=== PATIENT | female | born 1985 | race African-American/Black ===

== ENCOUNTER 2019-10-04 03:36 | Emergency (ER) | payer OTHER ==
[~2019-10-04] VITALS: Ht 154.9 cm; Wt 72.6 kg
--- NOTE | 2019-10-04 04:00 | NUR ---
ED Nurse Note: Pt walked into ED from home for c/o vaginal bleeding onset 1 month ago. Pt states she was seen at [facility] on 09/28 for same complaint and had US/blood work completed. Pt was instructed to return for follow up labs to see trend in lab work. Pt states vaginal bleeding has been worse the past couple of days. Pt denies abdominal pain. No N/V, cough, SOB or fever noted. Pt is approx 6 weeks per US completed on 09/28. Pt is aaox4, breathing is normal and unlabored. NAD.
[2019-10-04 04:20] LABS: BILIRUBIN, URINE NEGATIVE (NEGATIVE); GLUCOSE, URINE (UA) NEGATIVE (NEGATIVE); KETONES,URINE NEGATIVE (NEGATIVE); LEUKOCYTE ESTERASE ,URINE 1+ (NEGATIVE); NITRITE,URINE NEGATIVE (NEGATIVE); PH,URINE 6 (4.5-8.0); PROTEIN,URINE 1+ (NEGATIVE); UROBILINOGEN,URINE 1 MG/DL (0.0-1.0)
[2019-10-04 04:29] LABS: ANION GAP 8 mmol/L (5-15); BLOOD UREA NITROGEN 6 mg/dL (7-18); CALCIUM 9.1 MG/DL (8.5-10.1); CARBON DIOXIDE 23 MMOL/L (21-32); CHLORIDE 105 MMOL/L (98-107); CREATININE 0.8 MG/DL (0.55-1.30); POTASSIUM 4.3 MMOL/L (3.5-5.1); SODIUM 136 MMOL/L (136-145)
[2019-10-04 04:31] LABS: BASOPHILS % (AUTO) 1.1 % (0.0-2.0); EOSINOPHILS % (AUTO) 0.8 % (0.0-3.0); HEMATOCRIT 36.2 % (37.0-47.0); HEMOGLOBIN 11.6 G/DL (12.0-16.0); LYMPHOCYTES % (AUTO) 16.3 % (20.0-45.0); MEAN CORPUSCULAR VOLUME 74 FL (80-99); MONOCYTES % (AUTO) 7.1 % (1.0-10.0); NEUTROPHILS % (AUTO) 74.6 % (45.0-75.0); PLATELET COUNT 330 K/UL (150-450); RED BLOOD COUNT 4.86 M/UL (4.20-5.40); RED CELL DISTRIBUTION WIDTH 13.1 % (11.6-14.8); WHITE BLOOD COUNT 10.4 K/UL (4.8-10.8)
[2019-10-04 04:33] LABS: ALANINE AMINOTRANSFERASE 33 U/L (12-78); ALBUMIN 3.7 G/DL (3.4-5.0); ALBUMIN/GLOBULIN RATIO 0.9 (1.0-2.7); ALKALINE PHOSPHATASE 50 U/L (46-116); ASPARTATE AMINO TRANSFERASE 37 U/L (15-37); BILIRUBIN,TOTAL 0.5 MG/DL (0.2-1.0)
[2019-10-04 04:40] LABS: APPEARANCE,URINE SLIGHTLY CLOUDY; COLOR,URINE YELLOW
--- NOTE | 2019-10-04 06:00 | NUR ---
ED Nurse Note: Pt is resting in bed, NAD. Awaiting on US at this time. Will cont. to monitor.
--- NOTE | 2019-10-04 06:04 | Emergency Room Report ---
History of Present Illness General Chief Complaint: Complications Source: Patient (Ronak Harris MD) Present Illness HPI 34-year-old female presents the ED for vaginal bleeding. States she was seen at [facility] a few days ago for also bleeding. Is . Was told she is about 6 weeks . Was told to come back to the ED if her bleeding continued. Denies pain. Denies any nausea or vomiting. No other aggravating relieving factors. Denies any other associated symptoms. (Ronak Harris MD) Allergies: Coded Allergies: No Known Allergies (Unverified , 10/04/19) COVID-19 Screening Contact w/high risk pt: No Experienced COVID-19 symptoms?: No COVID-19 Testing performed CENTRAL OFFICE REPAIRER: No (Ronak Harris MD) Patient History Past Medical History: none Past Surgical History: none Pertinent Family History: none Social History: Denies: smoking, alcohol use, drug use Last Menstrual Period: one month ago - 08/2019 Now: Yes Immunizations: UTD Reviewed Nursing Documentation: PMH: Agreed; PSxH: Agreed (Ronak Harris MD) Review of Systems All Other Systems: negative except mentioned in HPI (Ronak Harris MD) Physical Exam Vital Signs Date Time Temp Pulse Resp B/P (MAP) Pulse Ox O2 Delivery O2 Flow Rate FiO2 10/04/19 03:42 98.8 97 16 103/68 (80) 98 Room Air Sp02 EP Interpretation: reviewed, normal General Appearance: no apparent distress, alert, GCS 15, non-toxic Head: normocephalic, atraumatic Eyes: bilateral eye normal inspection, bilateral eye PERRL ENT: hearing grossly normal, normal pharynx, no angioedema, normal voice Neck: full range of motion, supple/symm/no masses Respiratory: chest non-tender, lungs clear, normal breath sounds, speaking full sentences Cardiovascular #1: regular rate, rhythm, no edema Cardiovascular #2: 2+ carotid (R), 2+ carotid (L), 2+ radial (R), 2+ radial (L) , 2+ dorsalis pedis (R), 2+ dorsalis pedis (L) Gastrointestinal: normal bowel sounds, non tender, soft, non-distended, no guarding, no rebound Rectal: deferred Genitourinary: normal inspection, no CVA tenderness Musculoskeletal: back normal, normal range of motion, gait/station normal, non- tender Neurologic: alert, motor strength/tone normal, oriented x3, sensory intact, responsive, speech normal Psychiatric: judgement/insight normal, memory normal, mood/affect normal, no suicidal/homicidal ideation Reflexes: 3+ bicep (R), 3+ bicep (L), 3+ tricep (R), 3+ tricep (L), 3+ knee (R) , 3+ knee (L) Lymphatic: no adenopathy (Ronak Harris MD) Medical Decision Making Diagnostic Impression: Primary Impression: Threatened miscarriage Additional Impressions: Subchorionic hematoma in first trimester UTI in Laboratory Tests Test 10/04/19 04:07 White Blood Count 10.4 K/UL (4.8-10.8) Red Blood Count 4.86 M/UL (4.20-5.40) Hemoglobin 11.6 G/DL (12.0-16.0) L Hematocrit 36.2 % (37.0-47.0) L Mean Corpuscular Volume 74 FL (80-99) L Mean Corpuscular Hemoglobin 23.9 PG (27.0-31.0) L Mean Corpuscular Hemoglobin Concent 32.1 G/DL (32.0-36.0) Red Cell Distribution Width 13.1 % (11.6-14.8) Platelet Count 330 K/UL (150-450) Mean Platelet Volume 6.7 FL (6.5-10.1) Neutrophils (%) (Auto) 74.6 % (45.0-75.0) Lymphocytes (%) (Auto) 16.3 % (20.0-45.0) L Monocytes (%) (Auto) 7.1 % (1.0-10.0) Eosinophils (%) (Auto) 0.8 % (0.0-3.0) Basophils (%) (Auto) 1.1 % (0.0-2.0) Urine Color Yellow Urine Appearance Slightly cloudy Urine pH 6 (4.5-8.0) Urine Specific Hazen 1.020 (1.005-1.035) Urine Protein 1+ (NEGATIVE) H Urine Glucose (UA) Negative (NEGATIVE) Urine Ketones Negative (NEGATIVE) Urine Blood 4+ (NEGATIVE) H Urine Nitrite Negative (NEGATIVE) Urine Bilirubin Negative (NEGATIVE) Urine Urobilinogen 1 MG/DL (0.0-1.0) H Urine Leukocyte Esterase 1+ (NEGATIVE) H Urine RBC 5-10 /HPF (0 - 2) H Urine WBC 2-4 /HPF (0 - 2) Urine Squamous Epithelial Cells Many /LPF (NONE/OCC) H Urine Bacteria Many /HPF (NONE) H Urine HCG, Qualitative Positive (NEGATIVE) Sodium Level 136 MMOL/L (136-145) Potassium Level 4.3 MMOL/L (3.5-5.1) Chloride Level 105 MMOL/L (98-107) Carbon Dioxide Level 23 MMOL/L (21-32) Anion Gap 8 mmol/L (5-15) Blood Urea Nitrogen 6 mg/dL (7-18) L Creatinine 0.8 MG/DL (0.55-1.30) Estimat Glomerular Filtration Rate > 60 mL/min (>60) Glucose Level 128 MG/DL (74-106) H Calcium Level 9.1 MG/DL (8.5-10.1) Total Bilirubin 0.5 MG/DL (0.2-1.0) Aspartate Amino Transf (AST/SGOT) 37 U/L (15-37) Alanine Aminotransferase (ALT/SGPT) 33 U/L (12-78) Alkaline Phosphatase 50 U/L (46-116) Total Protein 7.9 G/DL (6.4-8.2) Albumin 3.7 G/DL (3.4-5.0) Globulin 4.2 g/dL Albumin/Globulin Ratio 0.9 (1.0-2.7) L Lipase 130 U/L (73-393) Human Chorionic Gonadotropin, Quant [id number] mIU/mL (1-6) H (Ronak Harris MD) ER Course Assumed care of the patient from previous provider approximately 6:30 AM pending ultrasound Briefly this is a 34-year-old female 6 weeks gestation by LMP presenting with vaginal bleeding. Bleeding is now resolved and she is not experiencing any cramping or abdominal pain. Labs have returned within normal limits with an adequate hCG level. Ultrasound is now been performed showing a single intrauterine with adequate heart rate no evidence of distress however there is a small subchorionic hematoma noted as well. Blood type is O+ she does not require RhoGam. 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 . Urinalysis also concerning for UTI. She was treated with Rocephin in the ED and will be discharged on Keflex. She is instructed to follow-up with them immediately to discuss today's findings. She understands and agrees with this treatment plan. Laboratory Tests Test 10/04/19 04:07 10/04/19 08:37 White Blood Count 10.4 K/UL (4.8-10.8) Red Blood Count 4.86 M/UL (4.20-5.40) Hemoglobin 11.6 G/DL (12.0-16.0) L Hematocrit 36.2 % (37.0-47.0) L Mean Corpuscular Volume 74 FL (80-99) L Mean Corpuscular Hemoglobin 23.9 PG (27.0-31.0) L Mean Corpuscular Hemoglobin Concent 32.1 G/DL (32.0-36.0) Red Cell Distribution Width 13.1 % (11.6-14.8) Platelet Count 330 K/UL (150-450) Mean Platelet Volume 6.7 FL (6.5-10.1) Neutrophils (%) (Auto) 74.6 % (45.0-75.0) Lymphocytes (%) (Auto) 16.3 % (20.0-45.0) L Monocytes (%) (Auto) 7.1 % (1.0-10.0) Eosinophils (%) (Auto) 0.8 % (0.0-3.0) Basophils (%) (Auto) 1.1 % (0.0-2.0) Urine Color Yellow Urine Appearance Slightly cloudy Urine pH 6 (4.5-8.0) Urine Specific Hazen 1.020 (1.005-1.035) Urine Protein 1+ (NEGATIVE) H Urine Glucose (UA) Negative (NEGATIVE) Urine Ketones Negative (NEGATIVE) Urine Blood 4+ (NEGATIVE) H Urine Nitrite Negative (NEGATIVE) Urine Bilirubin Negative (NEGATIVE) Urine Urobilinogen 1 MG/DL (0.0-1.0) H Urine Leukocyte Esterase 1+ (NEGATIVE) H Urine RBC 5-10 /HPF (0 - 2) H Urine WBC 2-4 /HPF (0 - 2) Urine Squamous Epithelial Cells Many /LPF (NONE/OCC) H Urine Bacteria Many /HPF (NONE) H Urine HCG, Qualitative Positive (NEGATIVE) Sodium Level 136 MMOL/L (136-145) Potassium Level 4.3 MMOL/L (3.5-5.1) Chloride Level 105 MMOL/L (98-107) Carbon Dioxide Level 23 MMOL/L (21-32) Anion Gap 8 mmol/L (5-15) Blood Urea Nitrogen 6 mg/dL (7-18) L Creatinine 0.8 MG/DL (0.55-1.30) Estimated Glomerular Filtration Rate > 60 mL/min (>60) Glucose Level 128 MG/DL (74-106) H Calcium Level 9.1 MG/DL (8.5-10.1) Total Bilirubin 0.5 MG/DL (0.2-1.0) Aspartate Amino Transferase (AST) 37 U/L (15-37) Alanine Aminotransferase (ALT) 33 U/L (12-78) Alkaline Phosphatase 50 U/L (46-116) Total Protein 7.9 G/DL (6.4-8.2) Albumin 3.7 G/DL (3.4-5.0) Globulin 4.2 g/dL Albumin/Globulin Ratio 0.9 (1.0-2.7) L Lipase 130 U/L (73-393) Human Chorionic Gonadotropin, Quant 329296 mIU/mL (1-6) H Prothrombin Time 10.1 SEC (9.30-11.50) Prothrombin Time INR 0.9 (0.9-1.1) Activated Partial Thromboplast Time 25 SEC (23-33) (Randal Plunkett MD) CT/MRI/US Diagnostic Results CT/MRI/US Diagnostic Results : Impression Procedure: US OB 1st Trimester Gestation Indication: Vaginal bleeding, positive Technique: Transabdominal and transvaginal images of the pelvis Comparison: none Findings: Uterus measures 12.9 cm in length by 2.4 cm AP. Within the endometrium , there is a gestational sac. The cervix is closed, endocervical canal measuring 5.7 cm in length. There is a small focus of subchorionic hemorrhage, measuring 9 x 8 mm. There is positive heart activity, heart rate. No free cul-de-sac fluid 162 bpm. The crown-rump length is 11 mm, corresponding estimated gestational age 7 weeks 2 days. A small yolk sac is demonstrated. No myometrial abnormality. Left ovary is normal in size, demonstrates normal flow on Doppler. Right ovary cannot be visualized Impression: Impression: 7 week 2 day by crown-rump length measurement, single live intrauterine . Small 9 mm subchorionic hemorrhage noted. Note nonvisualization of the right ovary Dictated By: Cipriano Mock MD Electronically Signed By: Cipriano Mock MD Signed Date/Time 10/04/19 1022 CC: Ronak Harris MD (Randal Plunkett MD) Last Vital Signs Date Time Temp Pulse Resp B/P (MAP) Pulse Ox O2 Delivery O2 Flow Rate FiO2 10/04/19 03:42 98.8 97 16 103/68 (80) 98 Room Air (Ronak Harris MD) Disposition: HOME, SELF-CARE Condition: Stable Scripts Cephalexin* (KEFLEX*) 500 Mg Capsule 500 MG ORAL EVERY 12 HOURS, #14 CAP 0 Refills Prov: Randal Plunkett MD 10/04/19 Referrals: [facility],REFERRING (PCP) Ronak Harris MD Oct 04, 2019 06:04 Randal Plunkett MD Oct 04, 2019 10:46
--- NOTE | 2019-10-04 06:52 | NUR ---
HAND-OFF: Report given to JALEN Tyler.
--- NOTE | 2019-10-04 07:36 | NUR ---
ED Nurse Note: US by bed side
[2019-10-04] MEDS ORDERED: cefTRIAXone 1 GM in NS 55 ML IVPB ONE (08:30)
[2019-10-04 09:18] LABS: INR 0.9 (0.9-1.1)
--- NOTE | 2019-10-04 10:27 | Diagnostic Imaging Report ---
Indication: Vaginal bleeding, positive Technique: Transabdominal and transvaginal images of the pelvis Comparison: none Findings: Uterus measures 12.9 cm in length by 2.4 cm AP. Within the endometrium, there is a gestational sac. The cervix is closed, endocervical canal measuring 5.7 cm in length. There is a small focus of subchorionic hemorrhage, measuring 9 x 8 mm. There is positive heart activity, heart rate. No free cul-de-sac fluid 162 bpm. The crown-rump length is 11 mm, corresponding estimated gestational age 7 weeks 2 days. A small yolk sac is demonstrated. No myometrial abnormality. Left ovary is normal in size, demonstrates normal flow on Doppler. Right ovary cannot be visualized Impression: Impression: 7 week 2 day by crown-rump length measurement, single live intrauterine . Small 9 mm subchorionic hemorrhage noted. Note nonvisualization of the right ovary
[2019-10-04] MEDS ORDERED: CEPHALEXIN500 MG ORAL (10:37)
[2019-10-04 10:53] VITALS: BP 103/68
--- NOTE | 2019-10-04 10:54 | NUR ---
ER DISCHARGE NOTE: Patient is cleared to be discharged per ERMD, pt is aox4, on room air, with stable vital signs. pt was given dc and prescription instructions, pt was able to verbalize understanding, pt id band and iv site removed without complications. pt is able to ambulate with steady gait. pt took all belongings.
== END 2019-10-04 10:54 | disposition home or self-care (01) ==
LOC: EMR 03:56
DX: O20.0 Threatened abortion (principal); Z3A.01 Less than 8 weeks gestation of pregnancy; O20.8 Other hemorrhage in early pregnancy; O23.41 Unspecified infection of urinary tract in pregnancy, first trimester
CPT/HCPCS: 36415; 76801; 76817; 80053; 81003; 81025; 83690; 84702; 85025; 85610; 85730; 86850; 86900; 86901; 87086; 96365; J0696; Z7502; 99284